=== PATIENT | male | born 1965 | race Caucasian/White ===

== ENCOUNTER 2019-08-31 15:05 | Emergency (ER) | payer MEDICAID, OTHER ==
[~2019-08-31] VITALS: Ht 167.6 cm; Wt 80.0 kg
[2019-08-31] MEDS ORDERED: KETOROLAC 60MG/2ML VIAL IM ONE (18:00)
[2019-08-31 19:26] VITALS: BP 114/71
== END 2019-08-31 19:27 | disposition home or self-care (01) ==
LOC: ER 15:05
DX: R05 Cough (principal); R50.9 Fever, unspecified; E11.9 Type 2 diabetes mellitus without complications
CPT/HCPCS: 71045; 96372; 99283; J1885

== ENCOUNTER 2024-02-05 20:54 | Emergency (ER) | payer SELFPAY ==
[~2024-02-05] VITALS: Ht 167.6 cm; Wt 84.0 kg
[2024-02-05 21:09] VITALS: TEMP 98.2; O2SAT 98
[2024-02-05 21:34] LABS: BASOPHILS % 0.9 % (0.0-2.0); EOSINOPHILS % 11.6 % (0.0-5.0); HEMATOCRIT. 44.4 % (42.0-52.0); HEMOGLOBIN. 15.2 g/dL (14.0-18.0); LYMPHOCYTES % 31.6 % (20.0-50.0); MEAN CORPUSCULAR HEMOGLOBIN 30.6 pg (28.0-32.0); MEAN CORPUSCULAR HGB CONC 34.1 g/dL (31.0-37.0); MEAN CORPUSCULAR VOLUME 89.7 fL (80.0-94.0); MEAN PLATELET VOLUME 9.2 fl (7.4-10.4); MONOCYTES % 7.7 % (2.0-8.0); NEUTROPHILS % 48.2 % (40.0-76.0); PLATELET 196 x1000/uL (130-400); RED BLOOD CELL COUNT 4.95 mill/uL (4.7-6.1); RED CELL DISTRIBUTION WIDTH 12.4 % (11.6-14.6); WHITE BLOOD COUNT 6.4 x1000/uL (4.5-11.0)
[2024-02-05 21:38] LABS: CHLORIDE 105 mEq/L (98-107); POTASSIUM 3.8 mEq/L (3.5-5.1); SODIUM 136 mEq/L (136-145)
[2024-02-05 21:39] LABS: CARBON DIOXIDE 24 mEq/L (21-32)
[2024-02-05 21:40] LABS: CALCIUM 9.5 mg/dL (8.7-10.4)
[2024-02-05 21:44] LABS: CREATININE 0.9 mg/dL (0.6-1.3); GLUCOSE 250 mg/dL (70-105)
[2024-02-05 21:45] LABS: UREA NITROGEN BLOOD 15 mg/dL (9-23)
[2024-02-05 21:46] LABS: TROPONIN I HIGH SENSITIVITY 44 ng/L (3.0-53)
[2024-02-05 23:51] LABS: TROPONIN I HIGH SENSITIVITY 43 ng/L (3.0-53)
[2024-02-06] MEDS ORDERED: AMLO2.5T2 MT (00:18)
[2024-02-06] MEDS: AMLODIPINE 5MG TABLET PO ONE (00:39)
[2024-02-06 00:48] VITALS: BP 161/87; PULSE 62; RESP 16
== END 2024-02-06 00:53 | disposition home or self-care (01) ==
LOC: ER 20:54
DX: I16.0 Hypertensive urgency (principal); E11.9 Type 2 diabetes mellitus without complications
CPT/HCPCS: 36415; 71045; 80048; 83880; 84484; 85025; 85379; 93005; 99285